=== PATIENT | female | born 1945 | race Caucasian/White ===

== ENCOUNTER 2016-10-11 16:28 | Inpatient (IN) | payer MEDICARE, OTHER ==
[~2016-10-11] VITALS: Ht 152.4 cm; Wt 56.8 kg
[~2016-10-11 16:28] MED LIST: ACETAMINOPHEN500 M1 PO; ADVIL200 MG PO; AMBIEN10 MG PO; AMITRIPTYLINE H50 MG PO; ASPERCREME 5 OZ5 OZ; ATIVAN0.5 MG PO; BACTRIM DS TABL1 TAB PO; BAYER CHEWABLE81 MG PO; BISCOLAX10 MG/SUPP RC; CELEXA10 MG PO; CELEXA20 MG PO; COLACE100 MG PO; CORDARONE200 MG PO; COUMADIN5 MG PO; COZAAR25 MG PO; DULCOLAX10 MG/SUPP RC; FLAGYL500 MG PO; KLONOPIN1 MG PO; LANOXIN125 MCG PO; LANOXIN250 MCG PO; LASIX20 MG PO; LEVAQUIN500 MG PO; LOTRISONE CREAM45 GM TP; MAG-OX 400 MG400 MG PO; MICRO-K10 MEQ PO; MIRALAX17 GM; NEURONTIN600 MG PO; NORCO 10/325 TA1 TA1 PO; NORCO 5/325 TAB1 TA1 PO; ONDANSETRON4 MG/2 M3 IV; PRILOSEC20 MG PO; PROTONIX40 MG PO; PROVENTIL/2.5 MG/3 M INH; QUESTRAN PACK4 G/PKT PO; RESTORIL15 MG PO; ROBAXIN500 MG; ROBAXIN500 MG PO; SENOKOT-S TABLE1 TAB PO; ULTRAM50 MG PO; VANCOMYCIN1 GM/2501 IV; VITAMIN C1000 MG PO; VOLTAREN75 MG OR; VOLTAREN75 MG PO; ZOFRAN4 MG PO; ZOLOFT25 MG PO; [UNRECOGNIZED DRUG - REMARK]
[2016-10-11 17:48] LABS: BASOPHILS 0.4 % (0.0-2.0); EOSINOPHILS 2.9 % (0-7); HEMOGLOBIN 14.1 g/dL (12-16); IMMATURE GRANULOCYTES 0.6 % (0-5); LYMPHOCYTES 14.6 % (15-50); MCH 31.8 pg (26.0-34.0); MCV 99.1 fL (80.0-100.0); MEAN PLATELET VOLUME 9.7 fL (7.4-10.4); MONOCYTES 7.5 % (2-11); PLATELET COUNT 283 10x3/uL (130-400); RBC 4.44 10x6/uL (4.00-5.40); WBC 16.1 10x3/uL (4.8-10.8)
[2016-10-11 18:11] LABS: ANION GAP 11.9 mmol/L (8-16); CALCIUM 9.6 mg/dL (8.5-10.1); CREATININE - SERUM 1.1 mg/dL (0.6-1.3); POTASSIUM - SERUM 4.9 mmol/L (3.5-5.1)
--- NOTE | 2016-10-11 21:50 | NUR ---
RECEIVED PATIENT TO ROOM VIA WHEELCHAIR. NO SIGNS OF DISTRESS NOTED. ORIENTED TO ROOM AND USE OF CALL LIGHT. DENIES ANY NEEDS AT THIS TIME. BED LOW. CALL LIGHT IN REACH
[2016-10-11] MEDS ORDERED: AMITRIPTYLINE H50 MG PO (21:51)
[2016-10-11] MEDS ORDERED: REQUIP0.5 MG PO (21:52)
[2016-10-11] MEDS ORDERED: OMNICEF300 MG PO (21:53)
[2016-10-11] MEDS ORDERED: TESSALON PERLE100 MG PO (21:54)
[2016-10-11 23:24] VITALS: BP 165/81; Ht 152.4 cm; Wt 56.8 kg
[2016-10-12] VITALS: BP 150/56
[2016-10-12 04:00] VITALS: BP 143/69
[2016-10-12 05:49] LABS: BASOPHILS 0.5 % (0.0-2.0); HEMOGLOBIN 12.8 g/dL (12-16); IMMATURE GRANULOCYTES 0.6 % (0-5); LYMPHOCYTES 22.4 % (15-50); MCH 31.4 pg (26.0-34.0); MCV 98.3 fL (80.0-100.0); MEAN PLATELET VOLUME 10.2 fL (7.4-10.4); MONOCYTES 9.9 % (2-11); NEUTROPHILS 63.6 % (40-80); PLATELET COUNT 285 10x3/uL (130-400); RBC 4.07 10x6/uL (4.00-5.40); RDW 13.8 % (11.5-14.5); WBC 12.6 10x3/uL (4.8-10.8)
[2016-10-12 06:20] LABS: ALBUMIN 3.1 g/dL (3.4-5.0); ANION GAP 14.9 mmol/L (8-16); BILIRUBIN - TOTAL 0.36 mg/dL (0.2-1.3); CALCIUM 9.2 mg/dL (8.5-10.1); CARBON DIOXIDE 24.8 mmol/L (21.0-32.0); POTASSIUM - SERUM 4.7 mmol/L (3.5-5.1); PROTEIN - SERUM 5.8 g/dL (6.4-8.2)
--- NOTE | 2016-10-12 07:52 | NUR ---
AWAKE AND ALERT. UP TO BR PER SELF AT THIS TIME. LUNGS ARE CLEAR BILATERALLY, NO COUGH NOTED. SKIN IS INTACT WITHOUT REDNESS. REPORTS 3 SMALL SOFT FORMED STOOLS IN PM. IV TO LEFT FOREARM IS PATENT WITHOUT REDNESS AT INSERTION SITE. DENIES NEEDS. BS ARE PRESENT SLIGHTLY HYPOACTIVE.
[2016-10-12 08:04] VITALS: BP 150/68
--- NOTE | 2016-10-12 09:25 | NUR ---
Patient Name: SAMY HASSAN Admission Status: ER Accout number: [id number] Admission Date: 10-11-2016 : 1945 Admission Diagnosis: Attending: KRISTINA Current LOS: 1 Anticipated DC Date: 10-16-2016 Planned Disposition: Home or Self Care Primary Insurance: MEDICARE A & B Discharge Planning Comments: CM MET WITH PATIENT REGARDING D/C NEEDS AND PLANS. PATIENT STATED SHE LIVES WITH HER SPOUSE (PAM) AND HE WILL PICK HER UP AT DISCHARGE. PATIENT STATED SHE IS INDEPENDENT WITH HER CARE AND HAS A CANE, WALKER, 02 AND PORTABLE AT HOME. PATIENT STATED SHE USES O2 PRN AND USUALLY IS AT 1 TO 1 1/2 LITER. PATIENTS STATED SHE HAS 3 STEPS WITH RAILS TO ENTER HOME AND NO STAIRS INSIDE. PATIENTS PCP IS DR. BROWN AND PHARMACY IS [facility] [address] PATIENT REFUSED HOME HEALTH. CM WILL CONTINUE TO FOLLOW PATIENT WITH D/C NEEDS AND PLANS. PCP DR. STEPHANIE KIRBY [phone] [phone] ASTRID JENKINS (DAUGHTER) [phone] PMA (SPOUSE) COULD NOT REMEMBER HIS NUMBER Mail Technician: Jessica Arana Is the patient Alert and Oriented? Yes 0 * How many steps to enter\exit or inside your home? 3 W/RAILS 0 * PCP DR. BROWN 0 * Pharmacy [facility] [address] 0 * Preadmission Environment Home with Family 0 * ADLs Independent 0 * Equipment Cane Oxygen Walker 0 * List name and contact numbers for known caregivers / representatives who currently or will assist patient after discharge: PAM (SPOUSE) CANT REMEMBER NUMBER ASTRID JENKINS (DAUGHTER) [phone] * Community resources currently utilized None 0 * Additional services required to return to the preadmission environment? Yes 0 * Can the patient safely return to the preadmission environment? Yes 0 * Has this patient been hospitalized within the prior 30 days at any hospital? No 0 Grand Total: 0
--- NOTE | 2016-10-12 10:30 | NUR ---
RESTING QUIETLY IN BED. DENIES NEEDS.
[2016-10-12 11:43] VITALS: BP 154/73
--- NOTE | 2016-10-12 12:18 | NUR ---
REFUSED OFFER OF BATH AT THIS TIME. WILL FOLLOW UP WITH PATIENT.
--- NOTE | 2016-10-12 16:15 | NUR ---
ATE ALL OF LUNCH WITHOUT ANY SIGNS OF DISTRESS. WILL CONTINUE TO MONITOR.
--- NOTE | 2016-10-12 16:49 | NUR ---
CM REASSESSMENT NOTE: PATIENT IS DISCHARGING HOME AND DENIES ANY NEEDS. FAMILY PICKING PATIENT UP.
[2016-10-12 16:56] VITALS: BP 139/70
--- NOTE | 2016-10-12 17:15 | NUR ---
SITTING UP IN BED EATING SUPPER. NO C/O AT THIS TIME. HAD MODERATE AMOUNT OF LOOSE WATERY GREEN STOOL. WILL MONITOR.
--- NOTE | 2016-10-12 18:50 | NUR ---
DISCHARGED HOME WITH FAMILY AMBULATORY.
--- NOTE | 2016-12-11 15:15 | DS ---
PATIENT:SAMY HASSAN :43 MEDICAL RECORD: [id number] DISCHARGE SUMMARY ADMISSION DATE: 10/11/16 DISCHARGE DATE: 10/12/16 ADMISSION DATE: 10/11/2016 DISCHARGE DATE: 10/12/2016 DIAGNOSES: 1. Adynamic ileus. 2. Abdominal pain. 3. Leukocytosis. 4. Hypertension IMAGIN. CT of the abdomen and pelvis which shows no acute intraabdominal pathology. There were some atherosclerotic calcifications in the aorta. 2. A KUB, persistent mild prominence of gas pattern. HOSPITAL COURSE: This is 71-year-old female patient of Dr. Beckwith who was admitted with an adynamic ileus. She underwent a CT and a KUB, see those findings above. She was placed on clear liquids. Her home meds were restarted. She has recently had an NG tube for low intermittent suction. It was discontinued and the patient was able to tolerate a diet. She was thought to be stable and was discharged home to follow back up in the outpatient setting. TRANSINT:[id number] Voice Confirmation ID: [id number] DOCUMENT ID: [id number] Dictated By: CHUYITA HANSEN I have interviewed/examined the above patient and agree with these documented findings. ERIS ROWELL MD at 1515 at 0811 CC: [id number] DICTATION DATE: 12/07/16 0909 PLANT ASSIGNER: 12/08/16 0003 DIS IN 10/12/16 [facility] [address] [place] [address]
== END 2016-10-12 18:50 | disposition home or self-care (01) | DRG 390 ==
LOC: D.ER 16:28 → D.MS 21:11
PROVIDERS: Emergency Medicine; Nurse Practitioner Acute Care; ADMIT Family Medicine
DX: K56.0 Paralytic ileus (principal); I10 Essential (primary) hypertension

== ENCOUNTER → 2018-01-21 15:26 | Outpatient (CLI) | payer MEDICARE, OTHER ==
[2016-10-11 23:24] VITALS: BMI 24.4
[~2018-01-21 15:26] MED LIST changes: +OMNICEF300 MG PO; +REQUIP0.5 MG PO; +TESSALON PERLE100 MG PO
== END | disposition home or self-care (01) ==
LOC: D.MRI 15:26
DX: M25.511 Pain in right shoulder (principal)

== ENCOUNTER → 2019-06-23 08:53 | Outpatient (CLI) | payer MEDICARE, OTHER ==
[2016-10-11 23:24] VITALS: BMI 24.4
[~2019-06-23 08:53] MED LIST changes: +CALCIUM 600 +1 EAC3 PO; +HYDROCODON-ACE1 EA10 PO; +LEVOFLOXACIN500 MG PO; +LYRICA50 MG PO; +MELATONIN5 M3 PO; -NORCO 5/325 TAB1 TA1 PO; +PREDNISONE10 MG PO
[2019-06-23 09:29] LABS: ALBUMIN 3.5 g/dL (3.4-5.0); BILIRUBIN - DIRECT 0.11 mg/dL (0.00-0.30); BILIRUBIN - INDIRECT 0.27 mg/dL (0.00-1.00); BILIRUBIN - TOTAL 0.38 mg/dL (0.2-1.3)
== END | disposition home or self-care (01) ==
LOC: D.LAB 08:53 → D.US 10:30
PROVIDERS: ATTEND Internal Medicine Gastroenterology
DX: K76.0 Fatty (change of) liver, not elsewhere classified (principal)

== ENCOUNTER → 2019-07-21 14:11 | Outpatient (CLI) | payer MEDICARE, OTHER ==
[2016-10-11 23:24] VITALS: BMI 24.4
== END | disposition home or self-care (01) ==
LOC: D.HCCARDIO 14:00 → D.HCCECHO 14:00
PROVIDERS: ATTEND Internal Medicine Cardiovascular Disease
DX: I35.0 Nonrheumatic aortic (valve) stenosis (principal)

== ENCOUNTER 2019-07-29 17:14 | Inpatient (IN) | payer MEDICARE, OTHER ==
[~2019-07-29] VITALS: Ht 152.4 cm; Wt 55.9 kg
[~2019-07-29 17:14] MED LIST changes: -CALCIUM 600 +1 EAC3 PO; -LEVOFLOXACIN500 MG PO; -LYRICA50 MG PO; -MELATONIN5 M3 PO; -PREDNISONE10 MG PO
[2019-07-29 19:40] LABS: BASOPHILS 0.4 % (0-2); EOSINOPHILS 1.6 % (0-7); HEMATOCRIT 42.8 % (36.0-48.0); HEMOGLOBIN 13.6 g/dL (12-16); IMMATURE GRANULOCYTES 0.3 % (0-5); LYMPHOCYTES 31.5 % (15-50); MCH 31.9 pg (26.0-34.0); MCHC 31.8 g/dL (31.0-37.0); MCV 100.2 fL (80.0-100.0); MEAN PLATELET VOLUME 9.8 fL (7.4-10.4); NEUTROPHILS 57.2 % (40-80); PLATELET COUNT 233 10x3/uL (130-400); RBC 4.27 10x6/uL (4.00-5.40); RDW 14.7 % (11.5-14.5); WBC 10.3 10x3/uL (4.8-10.8)
[2019-07-29 19:49] LABS: CALC OSMOLALITY 286 mosm/kg (275-300); CARBON DIOXIDE 25.6 mmol/L (21.0-32.0); CHLORIDE - SERUM 110 mmol/L (98-107); CREATININE - SERUM 0.8 mg/dL (0.6-1.3); GLUCOSE 85 mg/dL (74-106); POTASSIUM - SERUM 4.4 mmol/L (3.5-5.1); SODIUM 145 mmol/L (136-145); UREA NITROGEN 10 mg/dL (7-18); eGFR NON AFRICAN AMERICAN 74 mL/min (90-120)
[2019-07-29 20:06] LABS: ALBUMIN 3.5 g/dL (3.4-5.0); ALKALINE PHOSPHATASE 95 U/L (46-116); ALT (SGPT) 46 U/L (10-68); BILIRUBIN - TOTAL 0.38 mg/dL (0.2-1.3); CKMB 4.6 U/L (0.0-3.6); CREATINE KINASE 123 UL (21-215); PRO BNP 1811 pg/mL (0-450); PROTEIN - SERUM 6.6 g/dL (6.4-8.2); TROPONIN-I 0.025 ng/mL (0.000-0.060)
--- NOTE | 2019-07-29 20:44 | NUR ---
URINE SENT TO LAB
[2019-07-29 21:04] LABS: APPEARANCE CLEAR (CLEAR); BILIRUBIN NEGATIVE (NEGATIVE); COLOR YELLOW (YELLOW); GLUCOSE NEGATIVE (NEGATIVE); KETONE NEGATIVE (NEGATIVE); NITRITE POSITIVE (NEGATIVE); PROTEIN NEGATIVE (NEGATIVE); UROBILINOGEN NORMAL (NORMAL)
[2019-07-29 21:05] LABS: BACTERIA MANY /hpf (NEGATIVE); EPITHELIAL CELLS 0-5 /hpf (0-5); RED CELLS - URINE OCC /hpf (0-5)
[2019-07-29] MEDS ORDERED: CELEXA20 MG PO (22:07)
[2019-07-29] MEDS ORDERED: LYRICA50 MG PO (22:08)
[2019-07-29] MEDS ORDERED: CALCIUM 600 +1 EAC3 PO (22:10)
[2019-07-29] MEDS ORDERED: MELATONIN5 M3 PO (22:11)
[2019-07-29 22:14] VITALS: BP 115/70; Ht 152.4 cm; Wt 55.9 kg
--- NOTE | 2019-07-29 22:56 | NUR ---
PATIENT ARRIVED TO ROOM 2107 VIA W/C @2200. PATIENT IS AAOX4, IV TO RT AC [place] INFUSING. MED REC, QUICK START, ADULT HX, SUICIDE SCREENING COMPLETED.
[2019-07-30] VITALS: BP 152/76
--- NOTE | 2019-07-30 00:57 | NUR ---
PATIENT MEDICATED FOR SHOULDER AND LEG PAIN AT THIS TIME.
--- NOTE | 2019-07-30 02:50 | NUR ---
I have reviewed this patient and I concur with the Shift Assessment completed by the Licensed Practical Nurse today this shift.
[2019-07-30 04:00] VITALS: BP 142/62
[2019-07-30 05:03] LABS: BASOPHILS 0.3 % (0-2); EOSINOPHILS 1.7 % (0-7); HEMATOCRIT 40.2 % (36.0-48.0); HEMOGLOBIN 12.7 g/dL (12-16); IMMATURE GRANULOCYTES 0.3 % (0-5); LYMPHOCYTES 27.5 % (15-50); MCH 31.6 pg (26.0-34.0); MCHC 31.6 g/dL (31.0-37.0); MEAN PLATELET VOLUME 10.2 fL (7.4-10.4); MONOCYTES 10.6 % (2-11); NEUTROPHILS 59.6 % (40-80); PLATELET COUNT 234 10x3/uL (130-400); RBC 4.02 10x6/uL (4.00-5.40); RDW 14.5 % (11.5-14.5); WBC 9.4 10x3/uL (4.8-10.8)
[2019-07-30 05:48] LABS: ALBUMIN 2.9 g/dL (3.4-5.0); ANION GAP 12.8 mmol/L (8-16); BILIRUBIN - TOTAL 0.42 mg/dL (0.2-1.3); CALCIUM 8.5 mg/dL (8.5-10.1); CARBON DIOXIDE 23.7 mmol/L (21.0-32.0); CREATININE - SERUM 0.8 mg/dL (0.6-1.3); MAGNESIUM - SERUM 1.9 mg/dL (1.8-2.4); PHOSPHOROUS 3.3 mg/dL (2.5-4.9); THYROID STIMULATING HORMONE 1.54 uIU/mL (0.36-3.74)
[2019-07-30 05:53] LABS: POTASSIUM - SERUM 3.5 mmol/L (3.5-5.1)
[2019-07-30 06:07] LABS: INR 1.08 (0.85-1.17); PROTIME 13.5 SECONDS (11.6-15.0)
[2019-07-30] MEDS ORDERED: PREDNISONE10 MG PO (08:46)
--- NOTE | 2019-07-30 08:49 | NUR ---
PT CONCERNED ABOUT HOME MEDS AND SPECIDICALLY STARTING PREDNISONE DR. TERRELL WANTED HER TO START THIS AM. I STATED TO PT I WILL CALL AND SPEAK WITH NURSE PRACTIONER. PT VERBALIZED UNDERSTANDING. CALLED AND SPOKE WITH MIRI JEWELL ABOUT PT'S CONCERNS AND SHE STATES SHE WILL LOOK THROUGH PT'S MEDS AND START WHATEVER IS APPROPRIATE. I VERBALIZED UNDERSTANDING.
[2019-07-30 09:12] VITALS: BP 117/42
[2019-07-30 09:19] VITALS: BP 161/61
[2019-07-30 09:20] VITALS: BP 164/60
--- NOTE | 2019-07-30 11:32 | NUR ---
Rehab Note- Acute Inpatient Rehab prescreen order received. The patient continues to have an acute work up at this time. Will follow at this time for possible acute inpatient rehab stay when medically stable and ready for discharge from the acute hospital. Thank you for this referral! Martha Lindsey RN Clinical Liaison, [facility]
[2019-07-30 12:08] VITALS: BP 137/38
--- NOTE | 2019-07-30 15:52 | NUR ---
REPORTED TO ME PT IS FEELING COLD AND NOT HOLDING A CONVERSATION. WENT AND ASSESSED PT AND SHE IS ALERT AND ORIENTED AND CAN HOLD A CONVERSATION ASKED PT HOW SHE IS FEELING AND SHE STATES "OK IM STARTING TO FEEL A LITTLE BETTER BUT I AM A LITTLE COLD." PT'S AIR IS ON 50 TURNED IT UO TO 85. WILL CONTINUE TO MONITOR.
--- NOTE | 2019-07-30 16:18 | NUR ---
PT REFUSED SCD'S.
--- NOTE | 2019-07-30 16:48 | NUR ---
WORK ORDER PLACED EARLIER FOR PT'S TV NOT WORKING. CALLED MAINTENANCE AND THEY STATE THEY WILL COME TAKE A LOOK AT IT.
--- NOTE | 2019-07-30 17:35 | NUR ---
CONCUR WITH TOLL MECHANIC ASSESSMENT OF THIS PATIENT.
--- NOTE | 2019-07-30 19:23 | NUR ---
REPORT RECEIVED, WILL CONTINUE POC. PATIENT IS AAOX4, SITTING UP IN BED. DR. BRADFORD AT BEDSIDE.
--- NOTE | 2019-07-30 22:54 | NUR ---
PT MEDICATED FOR SHOULDER PAIN AT THIS TIME.
--- NOTE | 2019-07-31 02:02 | NUR ---
I have reviewed this patient and I concur with the Shift Assessment completed by the Licensed Practical Nurse today this shift.
[2019-07-31 04:56] VITALS: BP 168/53
[2019-07-31 06:21] LABS: BASOPHILS 0.2 % (0-2); EOSINOPHILS 0.6 % (0-7); HEMATOCRIT 37.9 % (36.0-48.0); IMMATURE GRANULOCYTES 0.3 % (0-5); LYMPHOCYTES 25.4 % (15-50); MCH 31.3 pg (26.0-34.0); MCHC 31.7 g/dL (31.0-37.0); MEAN PLATELET VOLUME 10.5 fL (7.4-10.4); MONOCYTES 9.6 % (2-11); NEUTROPHILS 63.9 % (40-80); PLATELET COUNT 224 10x3/uL (130-400); RBC 3.83 10x6/uL (4.00-5.40); RDW 14.5 % (11.5-14.5); WBC 10.2 10x3/uL (4.8-10.8)
[2019-07-31 06:36] LABS: ANION GAP 10.9 mmol/L (8-16); CALCIUM 8.7 mg/dL (8.5-10.1); CARBON DIOXIDE 27.2 mmol/L (21.0-32.0); MAGNESIUM - SERUM 2.3 mg/dL (1.8-2.4); PHOSPHOROUS 3.5 mg/dL (2.5-4.9)
[2019-07-31 06:37] LABS: CREATININE - SERUM 1.1 mg/dL (0.6-1.3); POTASSIUM - SERUM 4.1 mmol/L (3.5-5.1)
--- NOTE | 2019-07-31 07:29 | NUR ---
REPORT RECEIVED. WILL CONTINUE WITH POC. PT CURRENTLY LYING SEMI FOWLERS. CALL LIGHT W/I REACH. PT IS AAO AND UP WITH ASSIST. RR EVEN AND UNLABORED ON RA. R.AC PIV IS SALINE LOCKED. R.AC PIV IS SALINE LOCKED. NO S/S OF DISTRESS NOTED. PT DENIES ANY NEEDS. WILL CTM.
--- NOTE | 2019-07-31 11:17 | NUR ---
PT UP AND WALKING WITH PT. PT ASSISTED BACK INTO BED. AAO AND UP WITH ASSIST. CALL LIGHT W/I REACH. ASSESSMENT COMPLETE. WILL CTM.
[2019-07-31 12:20] VITALS: BP 126/31
[2019-07-31 12:27] VITALS: BP 119/42
[2019-07-31 15:58] VITALS: BP 152/45
--- NOTE | 2019-07-31 16:14 | NUR ---
I have reviewed this patient and I concur with the Shift Assessment completed by the Licensed Practical Nurse today this shift.
--- NOTE | 2019-07-31 16:47 | MORECARE ---
CASE MANAGEMENT DISCHARGE SUMMARY PATIENT: SAMY HASSAN UNIT: [id number] ADM DATE: 07/29/19 AGE: 74 : 44 SEX: F ROOM/BED: D.2103 AUTHOR: ABDI RAMOS PHYSICIAN: REFERRING PHYSICIAN: RADHA BRADFORD MD DATE OF SERVICE: 07/31/19 Discharge Plan Patient Name: SAMY HASSAN Facility: [facility]:[place] : 1945 Planned Disposition: Inpatient Rehab Anticipated Discharge Date: 08/01/19 Discharge Date: Expected LOS: 3 Initial Reviewer: [email or web address] Initial Review Date: 07/31/2019 Generated: 07/31/19 5:47 pm DCPIA - Discharge Planning Initial Assessment Updated by [email or web address]: Nestor Starks on 07/31/19 4:44 pm * Is the patient Alert and Oriented? Yes * How many steps to enter\exit or inside your home? 3 W/RAILS * PCP DR. BROWN * Pharmacy [facility] [address] * Preadmission Environment Home with Family * ADLs Independent * Equipment Cane Oxygen Rolling Walker * Other Equipment HOME OXYGEN ROLLATOR WALKER - [employer] IS PROVIDER * List name and contact numbers for known caregivers / representatives who currently or will assist patient after discharge: ASTRID JENKINS DTR, * Verbal permission to speak to the caregivers and representatives has been obtained from the patient. N/A * Community resources currently utilized None * Please name any agencies selected above. NONE * Additional services required to return to the preadmission environment? Yes * Can the patient safely return to the preadmission environment? Yes * Has this patient been hospitalized within the prior 30 days at any hospital? No Coverage Notice Reviewer: [email or web address] - Nestor Starks Notice Issued Date-Time: 07/31/2019 9:55 Notice Type: IM Discharge Notice Notice Delivered To: Patient Relationship to Patient: Manager Outreach Name: Delivery Method: HAND - Hand Delivered Lindsay Days: Prior Verbal Notification: Recipient Understood Notice: Yes Recipient Signature: Yes Med Rec Note Co-signed by Attending: Coverage Notice Comment: Patient Name: SAMY HASSAN Page [phone] at 1647 All edits/amendments must be made on the electronic document DICTATION DATE: 07/31/191646 TOOL KEEPER: JOHANA 07/31/191646 RPT#: [id number] OR DATE: STATUS: ADM IN [facility] [address] [place] [address] END OF REPORT
--- NOTE | 2019-07-31 16:54 | MORECARE ---
CASE MANAGEMENT DISCHARGE SUMMARY PATIENT: SAMY HASSAN UNIT: [id number] ADM DATE: 07/29/19 AGE: 74 : 44 SEX: F ROOM/BED: D.2108 AUTHOR: RICHARD,DOC PHYSICIAN: REFERRING PHYSICIAN: RADHA BRADFORD MD DATE OF SERVICE: 07/31/19 Discharge Plan Patient Name: SAMY HASSAN [facility] [facility] 1945 Planned Disposition: Inpatient Rehab Anticipated Discharge Date: 08/01/19 Discharge Date: Expected LOS: 3 Initial Reviewer: [email or web address] Initial Review Date: 07/31/2019 Generated: 07/31/19 5:53 pm Comments DCP- Discharge Planning Updated by [email or web address]: Nestor Starks on 07/31/19 3:[address] Patient Name: SAMY HASSAN Admission Status: ER Accout number: [id number] Admission Date: 07-29-2019 : 1945 Admission Diagnosis: Attending: RADHA BRADFORD Current LOS: 2 Anticipated DC Date: 08-01-2019 Planned Disposition: Inpatient Rehab Primary Insurance: MEDICARE A & B PREFERRED EXERNAL PROVIDER: [facility] INPATIENT REHAB Discharge Planning Comments: CM RECEIVED ORDER FOR INPATIENT REHAB PRESCREENING. CM MET WITH PT IN ROOM TO DISCUSS DISCHARGE PLANNING AND NEEDS. PT REPORTS LIVING AT HOME INDEPENDENTLY; ALSO IN THE HOME IS PT'S DAUGHTER. PT HAS ROLLATOR WALKER, HOME OXYGEN CONCENTRATOR AND CANE FROM [facility]. PT HAS NO OUTSIDE SERVICES ASSISTING IN THE HOME. CM DISCUSSED AVAILABILITY OF HOME HEALTH, REHAB SERVICES AND MEDICAL EQUIPMENT. CM DISCUSSED REHAB LOCATIONS, PROVIDERS AND AVAILABILITY. PT REPORTS NEEDING REHAB SHE HAS BEEN SHORT OF BREATH AND LOOSING BALANCE WHEN WALKING. PT WOULD LIKE REHAB AT [place]. PT REPORTS HER DAUGHTER WILL PICK HER UP FOR DISCHARGE HOME. IMPORTANT MESSAGE FROM MEDICARE PROVIDED AND EXPLAINED. CM SPOKE TO GLEND[facility] OF INPATIENT REHAB, THEY PLAN TO ACCEPT PT WHEN MEDICALLY STABLE FOR DISCHARGE, FOR REHAB. PT NOTIFIED, IN AGREEMENT WITH DISCHARGE TO INPATIENT REHAB. NOTIFY REHAB WHEN DISCHARGE ORDER IS RECEIVED. [facility] INPATIENT REHAB TO CONTACT MED 2 NURSE WITH ROOM NUMBER WHEN READY TO ACCEPT PT AND NURSE REPORT. Bandoleer Straightener Stamper: Nestor Starks DCPIA - Discharge Planning Initial Assessment Updated by [email or web address]: Nestor Starks on 07/31/19 4:44 pm * Is the patient Alert and Oriented? Yes * How many steps to enter\exit or inside your home? 3 W/RAILS * PCP DR. BROWN * Pharmacy [facility] [address] * Preadmission Environment Home with Family * ADLs Independent * Equipment Cane Oxygen Rolling Walker * Other Equipment HOME OXYGEN ROLLATOR WALKER - [employer] IS PROVIDER * List name and contact numbers for known caregivers / representatives who currently or will assist patient after discharge: ASTRID JENKINS, DTR, * Verbal permission to speak to the caregivers and representatives has been obtained from the patient. N/A * Community resources currently utilized None * Please name any agencies selected above. NONE * Additional services required to return to the preadmission environment? Yes * Can the patient safely return to the preadmission environment? Yes * Has this patient been hospitalized within the prior 30 days at any hospital? No Coverage Notice Reviewer: [id number] - Nestor Starks Notice Issued Date-Time: 07/31/2019 9:55 Notice Type: IM Discharge Notice Notice Delivered To: Patient Relationship to Patient: Composition Roll Maker And Cutter Name: Delivery Method: HAND - Hand Delivered Lindsay Days: Prior Verbal Notification: Recipient Understood Notice: Yes Recipient Signature: Yes Med Rec Note Co-signed by Attending: Coverage Notice Comment: Last DP export: 07/31/19 3:47 Patient Name: SAMY HASSAN Page [phone] at 1654 All edits/amendments must be made on the electronic document DICTATION DATE: 07/31/191652 ER REGISTRAR: JOHANA 07/31/191652 RPT#: [id number] [place] DATE: STATUS: ADM IN [facility] [address] [place] [address] END OF REPORT
--- NOTE | 2019-07-31 17:08 | NUR ---
ORTHOSTATIC BLOOD PRESSURES FOLLOWED: LYIN/68. SITTIN/59. STANDIN/61.
--- NOTE | 2019-07-31 18:07 | NUR ---
PT ASSISTED TO AND FROM BATHROOM. WHERE PT VOIDED APPROX 150ML OF PALE YELLOW URINE. PT DENIES ANY NEEDS AT THIS TIME. NO S/S OF DISTRESS NOTED. PT UP WITH MINIMAL ASSIST. WILL CTM.
--- NOTE | 2019-07-31 19:47 | NUR ---
REPORT RECEIVED, WILL CONTINUE POC. PATIENT IS AAOX4, SITTING UP IN BED. NO S/S OF DISTRESS OBSERVED, RR EVEN AND UNLABORED ON ROOM AIR. PATIENT DENIES NEEDS AT THIS TIME. CL IN REACH, BED LOCKED AND LOWERED. WILL CTM.
[2019-07-31 20:39] VITALS: BP 160/44
[2019-08-01 00:15] VITALS: BP 174/44
--- NOTE | 2019-08-01 03:08 | NUR ---
I have reviewed this patient and I concur with the Shift Assessment completed by the Licensed Practical Nurse today this shift.
[2019-08-01 04:45] VITALS: BP 152/45
[2019-08-01 05:45] LABS: BASOPHILS 0.2 % (0-2); EOSINOPHILS 1.6 % (0-7); HEMATOCRIT 37.3 % (36.0-48.0); HEMOGLOBIN 11.8 g/dL (12-16); IMMATURE GRANULOCYTES 0.4 % (0-5); LYMPHOCYTES 26.3 % (15-50); MCH 31.6 pg (26.0-34.0); MCHC 31.6 g/dL (31.0-37.0); MEAN PLATELET VOLUME 10.6 fL (7.4-10.4); MONOCYTES 10.4 % (2-11); NEUTROPHILS 61.1 % (40-80); PLATELET COUNT 238 10x3/uL (130-400); RBC 3.73 10x6/uL (4.00-5.40); RDW 14.8 % (11.5-14.5); WBC 11.1 10x3/uL (4.8-10.8)
[2019-08-01 06:16] LABS: ANION GAP 11.5 mmol/L (8-16); CALCIUM 8.2 mg/dL (8.5-10.1); CARBON DIOXIDE 26.1 mmol/L (21.0-32.0); CREATININE - SERUM 1.2 mg/dL (0.6-1.3); MAGNESIUM - SERUM 2.2 mg/dL (1.8-2.4); PHOSPHOROUS 3.1 mg/dL (2.5-4.9); POTASSIUM - SERUM 3.6 mmol/L (3.5-5.1)
[2019-08-01 07:50] VITALS: BP 180/57
--- NOTE | 2019-08-01 07:56 | NUR ---
REPORT RECEIVED. WILL CONTINUE WITH POC. PT CURRENTLY LYING SEMI FOWLERS. CALL LIGHT W/I REACH. PT IS AAO AND UP WITH ASSIST. RR EVEN AND UNALBORED ON RA. L.FOR PIV IS SALINE LOCKED. NO S/S OF DISTRESS NOTED. PT DENIES ANY NEEDS AT THIS TIME. WILL CTM.
[2019-08-01 10:47] VITALS: BP 131/53
[2019-08-01] MEDS ORDERED: LEVOFLOXACIN500 MG PO (11:09)
--- NOTE | 2019-08-01 11:44 | NUR ---
I have reviewed this patient and I concur with the Shift Assessment completed by the Licensed Practical Nurse today this shift.
--- NOTE | 2019-08-01 13:31 | NUR ---
PT TRANSFERED TO INPATIENT REHAB VIA WHEELCHAIR. PIV REMOVED WITH CATHETER TIP FULLY INTACT. TELEMETRY REMOVED AND RETURNED. PT SIGNED PROPER DISCHARGE INSTRUCTIONS AND REMOVED ALL VALUABLES FROM THE ROOM.
--- NOTE | 2019-08-01 16:15 | MORECARE ---
CASE MANAGEMENT DISCHARGE SUMMARY PATIENT: SAMY HASSAN UNIT: [id number] ADM DATE: 07/29/19 AGE: 74 : 44 SEX: F ROOM/BED: D.2107 AUTHOR: RICHARD,DOC PHYSICIAN: REFERRING PHYSICIAN: RADHA BRADFORD MD DATE OF SERVICE: 08/01/19 Discharge Plan Patient Name: SAMY HASSAN Facility: [facility]:[place] : 1945 Planned Disposition: Inpatient Rehab Anticipated Discharge Date: 08/01/19 Discharge Date: 08/01/2019 Expected LOS: 3 Initial Reviewer: [email or web address] Initial Review Date: 07/31/2019 Generated: 08/01/19 5:15 pm Comments DCP- Discharge Planning Updated by [email or web address]: Nestor Starks on 07/31/19 3:[address] Patient Name: SAMY HASSAN Admission Status: ER Accout number: [id number] Admission Date: 07-29-2019 : 1945 Admission Diagnosis: Attending: RADHA BRADFORD Current LOS: 2 Anticipated DC Date: 08-01-2019 Planned Disposition: Inpatient Rehab Primary Insurance: MEDICARE A & B PREFERRED EXERNAL PROVIDER: [facility] INPATIENT REHAB Discharge Planning Comments: CM RECEIVED ORDER FOR INPATIENT REHAB PRESCREENING. CM MET WITH PT IN ROOM TO DISCUSS DISCHARGE PLANNING AND NEEDS. PT REPORTS LIVING AT HOME INDEPENDENTLY; ALSO IN THE HOME IS PT'S DAUGHTER. PT HAS ROLLATOR WALKER, HOME OXYGEN CONCENTRATOR AND CANE FROM [facility]. PT HAS NO OUTSIDE SERVICES ASSISTING IN THE HOME. CM DISCUSSED AVAILABILITY OF HOME HEALTH, REHAB SERVICES AND MEDICAL EQUIPMENT. CM DISCUSSED REHAB LOCATIONS, PROVIDERS AND AVAILABILITY. PT REPORTS NEEDING REHAB SHE HAS BEEN SHORT OF BREATH AND LOOSING BALANCE WHEN WALKING. PT WOULD LIKE REHAB AT [place]. PT REPORTS HER DAUGHTER WILL PICK HER UP FOR DISCHARGE HOME. IMPORTANT MESSAGE FROM MEDICARE PROVIDED AND EXPLAINED. CM SPOKE TO GLENDY OF INPATIENT REHAB, THEY PLAN TO ACCEPT PT WHEN MEDICALLY STABLE FOR DISCHARGE, FOR REHAB. PT NOTIFIED, IN AGREEMENT WITH DISCHARGE TO INPATIENT REHAB. NOTIFY REHAB WHEN DISCHARGE ORDER IS RECEIVED. [facility] INPATIENT REHAB TO CONTACT MED 2 NURSE WITH ROOM NUMBER WHEN READY TO ACCEPT PT AND NURSE REPORT. Gelatin Plant Supervisor: Nestor Starks DCPIA - Discharge Planning Initial Assessment Updated by [email or web address]: Nestor Starks on 07/31/19 4:44 pm * Is the patient Alert and Oriented? Yes * How many steps to enter\exit or inside your home? 3 W/RAILS * PCP DR. BROWN * Pharmacy [facility] [address] * Preadmission Environment Home with Family * ADLs Independent * Equipment Cane Oxygen Rolling Walker * Other Equipment HOME OXYGEN ROLLATOR WALKER - [employer] IS PROVIDER * List name and contact numbers for known caregivers / representatives who currently or will assist patient after discharge: ASTRID JENKINS, DTR, * Verbal permission to speak to the caregivers and representatives has been obtained from the patient. N/A * Community resources currently utilized None * Please name any agencies selected above. NONE * Additional services required to return to the preadmission environment? Yes * Can the patient safely return to the preadmission environment? Yes * Has this patient been hospitalized within the prior 30 days at any hospital? No Coverage Notice Reviewer: [id number] - Nestor Starks Notice Issued Date-Time: 07/31/2019 9:55 Notice Type: IM Discharge Notice Notice Delivered To: Patient Relationship to Patient: Legal Recruiter Name: Delivery Method: HAND - Hand Delivered Lindsay Days: Prior Verbal Notification: Recipient Understood Notice: Yes Recipient Signature: Yes Med Rec Note Co-signed by Attending: Coverage Notice Comment: Last DP export: 07/31/19 3:54 Patient Name: SAMY HASSAN Page [phone] at 1615 All edits/amendments must be made on the electronic document DICTATION DATE: 08/01/19 161 PLY CUTTER: JOHANA 08/01/19 161 RPT#: [id number] DC DATE:08/01/19 STATUS: DIS IN [facility] [address] [place] [address] END OF REPORT
== END 2019-08-01 13:31 | DRG 689 ==
LOC: D.ER 17:14 → D.M2 21:23
PROVIDERS: Family Medicine; ADMIT Internal Medicine Nephrology; ATTEND Internal Medicine Nephrology
DX: N39.0 Urinary tract infection, site not specified (principal); I50.33 Acute on chronic diastolic (congestive) heart failure; E44.0 Moderate protein-calorie malnutrition; Z91.81 History of falling; D75.89 Other specified diseases of blood and blood-forming organs; I11.0 Hypertensive heart disease with heart failure; I35.2 Nonrheumatic aortic (valve) stenosis with insufficiency; M19.90 Unspecified osteoarthritis, unspecified site; M81.0 Age-related osteoporosis without current pathological fracture; G25.81 Restless legs syndrome; F32.9 Major depressive disorder, single episode, unspecified; Z68.24 Body mass index [BMI] 24.0-24.9, adult; K52.9 Noninfective gastroenteritis and colitis, unspecified

== ENCOUNTER 2019-08-01 13:06 | Inpatient (IN) | payer MEDICARE, OTHER ==
[~2019-08-01] VITALS: Ht 152.4 cm; Wt 56.7 kg
[~2019-08-01 13:06] MED LIST changes: +CALCIUM 600 +1 EAC3 PO; +LEVOFLOXACIN500 MG PO; +LYRICA50 MG PO; +MELATONIN5 M3 PO; +PREDNISONE10 MG PO
[2019-08-01 14:21] VITALS: BP 127/31; BMI 24.4
--- NOTE | 2019-08-01 14:30 | NUR ---
PATIENT ADMITTED FROM MED SURG TO ROOM 1109. ALERT/ORIENT. DIAG: DEBILITY. PATIENT ORIENT TO ROOM AND UNIT
--- NOTE | 2019-08-01 15:57 | NUR ---
PATIENT ADMITTED TO REHAB FROM ACUTE FLOOR. HER PCP IS DR. BROWN. DME AT HOME IS WALKER, CAN AND O2 PROVIDED FROM [facility]. DISCHARGE PLANS ARE FOR HER TO RETURN HOME WITH FAMILY . WILL CONTINUE TO FOLLOW WITH PATIENT.
--- NOTE | 2019-08-01 17:55 | NUR ---
PT EATING DINNER, SITTING UP IN CHAIR. PT DENIES NEEDS. PRN O2 SET UP IN ROOM ON PT REQUEST.
[2019-08-01 19:21] VITALS: BP 165/54
--- NOTE | 2019-08-01 19:52 | NUR ---
AWAKE AND ALERT. SITTING IN WHEELCHAIR IN ROOM. RESPIRATIONS MILDY LABORED AND MILD SHORTNESS OF BREATH NOTED. PATIENT STATES SHE WILL PUT ON HER O2 WHEN SHE GOES TO BED. O2 SATURATION 92%. NO ACUTE DISTRESS NOTED.
--- NOTE | 2019-08-02 01:39 | NUR ---
SLEEPING WITH RESPIRATIONS UNLABORED. NO DISTRESS NOTED. CALL LIGHT IN REACH.
--- NOTE | 2019-08-02 05:11 | NUR ---
SITTING UP IN WHEELCHAIR. QUIET HOURS. MEDICATED FOR C/O BACK PAIN. SEE MAR. RESPIRATIONS UNLABORED. NO DISTRESS NOTED.
[2019-08-02 06:04] LABS: BASOPHILS 0.5 % (0-2); EOSINOPHILS 1.7 % (0-7); HEMATOCRIT 40.8 % (36.0-48.0); HEMOGLOBIN 13.1 g/dL (12-16); IMMATURE GRANULOCYTES 0.3 % (0-5); LYMPHOCYTES 30.3 % (15-50); MCH 31.9 pg (26.0-34.0); MCHC 32.1 g/dL (31.0-37.0); MCV 99.3 fL (80.0-100.0); MEAN PLATELET VOLUME 10.3 fL (7.4-10.4); MONOCYTES 11.4 % (2-11); NEUTROPHILS 55.8 % (40-80); PLATELET COUNT 250 10x3/uL (130-400); RBC 4.11 10x6/uL (4.00-5.40); RDW 14.8 % (11.5-14.5)
[2019-08-02 06:19] LABS: ANION GAP 11.8 mmol/L (8-16); CALCIUM 8.8 mg/dL (8.5-10.1); CARBON DIOXIDE 25.8 mmol/L (21.0-32.0); CREATININE - SERUM 0.9 mg/dL (0.6-1.3); POTASSIUM - SERUM 3.6 mmol/L (3.5-5.1)
[2019-08-02 08:00] VITALS: BP 147/40
--- NOTE | 2019-08-02 08:00 | NUR ---
SHIFT ASSMT COMPLETED.BREAKFAST GIVEN.
--- NOTE | 2019-08-02 12:00 | NUR ---
SITTING UP EATING LUNCH.DENIES NEEDS.
[2019-08-02 12:32] VITALS: Ht 152.4 cm; Wt 56.7 kg
--- NOTE | 2019-08-02 16:00 | NUR ---
RESTING QUIETLY.CL IN REACH.
[2019-08-02 19:25] VITALS: BP 155/50
--- NOTE | 2019-08-02 19:29 | NUR ---
AWAKE AND ALERT. RESTING IN BED READING. RESPIRATIONS UNLABORED AT REST. SOME SHORTNESS OF BREATH WITH EXERTION. WEARS O2/2L AT NIGHT. 3+ EDEMA NOTED TO BILATERAL LOWER EXTREMITIES. LEGS ELEVATED IN BED. NO ACUTE DISTRESS NOTED. CALL LIGHT IN REACH.
--- NOTE | 2019-08-02 23:37 | NUR ---
SLEEPING WITH RESPIRATIONS UNLABORED. NO DISTRESS NOTED.
--- NOTE | 2019-08-03 03:03 | NUR ---
CONTINUES RESTING IN BED WITH RESPIRATIONS UNLABORED. NO DISTRESS NOTED. CALL LIGHT IN REACH.
--- NOTE | 2019-08-03 06:28 | NUR ---
QUIET HOURS. NO ACUTE CHANGES IN CONDITION THIS SHIFT. UP TO BATHROOM AND BACK TO BED WITH NO DISTRESS NOTED.
[2019-08-03 08:00] VITALS: BP 131/35
--- NOTE | 2019-08-03 12:00 | NUR ---
UP IN BED EATING LUNCH.
--- NOTE | 2019-08-03 14:57 | NUR ---
SHIFT ASSMT COMPLETED.BREAKFAST GIVEN.
[2019-08-03 19:34] VITALS: BP 144/58
--- NOTE | 2019-08-03 19:37 | NUR ---
AWAKE AND ALERT. SITTING ON SIDE OF BED WATCHING TV. RESPIRATIONS UNLABORED. STATES SHE HAS HAD SEVERAL DIARRHEA STOOLS TODAY. I LET HER KNOW THAT A MESSAGE WAS LEFT FOR DR ANNA ON ROUNDING SHEET. SHE VOICED OK. CONTINUES TO HAVE 3+ EDEMA IN BILATERAL LOWER EXTREMITIES. WEARS O2/1.5L PER NASAL CANNULA AT HS. NO ACUTE DISTRESS NOTED. CALL LIGHT IN REACH.
--- NOTE | 2019-08-03 23:11 | NUR ---
SLEEPING WITH RESPIRATIONS UNLABORED. NO DISTRESS NOTED. CALL LIGHT IN REACH.
--- NOTE | 2019-08-04 03:26 | NUR ---
UP TO BATHROOM AND BACK TO BED. STATED SHE HAD ANOTHER LOOSE STOOL BUT "IT'S LESS THAN BEFORE". MEDICATED FOR SHOULDER PAIN. SEE MAR.
--- NOTE | 2019-08-04 05:03 | NUR ---
RESTING IN BED. HAS HAD 3 LOOSE STOOLS THIS SHIFT. NO ACUTE DISTRESS NOTED. CALL LIGHT IN REACH.
[2019-08-04 06:26] LABS: BASOPHILS 0.2 % (0-2); EOSINOPHILS 1.7 % (0-7); HEMATOCRIT 39.9 % (36.0-48.0); HEMOGLOBIN 12.4 g/dL (12-16); IMMATURE GRANULOCYTES 0.7 % (0-5); LYMPHOCYTES 25.1 % (15-50); MCH 31.2 pg (26.0-34.0); MCHC 31.1 g/dL (31.0-37.0); MCV 100.3 fL (80.0-100.0); MEAN PLATELET VOLUME 10.5 fL (7.4-10.4); MONOCYTES 10.2 % (2-11); NEUTROPHILS 62.1 % (40-80); PLATELET COUNT 268 10x3/uL (130-400); RBC 3.98 10x6/uL (4.00-5.40)
[2019-08-04 06:41] LABS: ANION GAP 10.2 mmol/L (8-16); CALCIUM 8.5 mg/dL (8.5-10.1); CARBON DIOXIDE 29.9 mmol/L (21.0-32.0); POTASSIUM - SERUM 4.1 mmol/L (3.5-5.1)
--- NOTE | 2019-08-04 07:48 | NUR ---
ALERT AND ORIENTED. EATING BREAKFAST IN THERAPY. NO C/O PAIN. RESP EVEN AND UNLABORED.
[2019-08-04 07:55] VITALS: BP 168/44
--- NOTE | 2019-08-04 09:24 | RHP ---
PATIENT: SAMY HASSAN MEDICAL RECORD: [id number] ACCOUNT: [id number] LOCATION:[id number] : 43 ADMISSION DATE: 08/01/19 REHABILITATION HISTORY AND PHYSICAL EXAMINATION POST ADMISSION PHYSICIAN EXAMINATION ADMITTING DIAGNOSIS: Debility secondary to urinary tract infection caused by Escherichia coli. HISTORY OF PRESENT ILLNESS: The patient is a 74-year-old female patient, who is followed by Dr. Beckwith. She has got a history of hypertension, osteoporosis, neuropathy, chronic back pain, presented to the ED on 07/29/2019 with multiple falls, stated that she had had a fall a few weeks prior to her admit, sustained a right shoulder injury. Had an MRI of her right shoulder, but did not know any results from this. She continues to have weakness and decreased mobility of her right upper extremity after sustaining a fall. Reported that she had additional fall on 07/27/2019, states that she feels weak and dizzy at times, did report that she had some irritation when urinating and was admitted to the acute hospital , found to have a UTI caused by E. coli. She has been seen and followed by PT during her acute hospital admit. She is currently on telemetry, IV antibiotics, supplemental O2. She is having acute pain. She is on electrolyte protocol, deconditioning, weakness, debility, impaired mobility and gait disturbance and high fall risk and self-care deficits. These are all barriers to her discharge home safely at this time. She lives at home with her , was independent with her ADLs and mobility prior to this. Currently, set up for mod assist for ADLs, mod assist for mobility. She and her family are planning for her to return home hopefully at her prior level of function or better. COMORBIDITIES: Include UTI, hypertension, [id number] diastolic congestive heart failure, valvular heart disease, moderate aortic stenosis, moderate aortic insufficiency, osteoarthritis, osteoporosis, restless legs, depression, neuropathy, protein-calorie malnutrition, chronic diarrhea, sinus tachycardia, frequent falls and chronic back pain. PAST MEDICAL HISTORY: Significant for neuropathy, weakness, vertigo, hypertension, CHF, tachycardia, arthritis, chronic lumbago, osteoporosis, restless legs, menopause, depression. PAST SURGICAL HISTORY: Includes appendectomy, tonsillectomy, adenoidectomy, bilateral foot surgery. ALLERGIES: PENICILLIN. CURRENT MEDICATIONS: Include digoxin 0.125 mg daily, Floranex 460 mg daily. She is on prednisone 10 mg daily. She is on potassium chloride 20 mEq daily, losartan 25 mg daily, Levaquin 250 mg daily, citalopram 20 mg daily, Protonix 40 mg daily, furosemide 40 mg daily, Requip 0.5 mg b.i.d., melatonin 6 mg bedtime, Os-Larry with D 500 mg b.i.d., Lyrica 50 mg t.i.d. and Findlay 10/325 one tab every 4 hours p.r.n. HABITS: No alcohol or tobacco use. FAMILY HISTORY: Noncontributory. HISTORY AND PHYSICAL [id number] MO,SAMY SOCIAL HISTORY: The patient hopes to return back home and get back to her prior level of functioning. REVIEW OF SYSTEMS: GENERAL: Does complain of some weakness and fatigue. HEENT: Denies cold, cough, or congestion. CARDIOVASCULAR: Denies any chest pain. LUNGS: Denies shortness of breath. PHYSICAL EXAMINATION: VITAL SIGNS: Stable. She is afebrile. GENERAL: A thin female in no acute distress, alert upon exam. HEENT: Normocephalic and atraumatic. Mucosa moist. NECK: Supple. No lymphadenopathy. LUNGS: Clear at this time. No wheezing, rhonchi or rales. HEART: Regular rate and rhythm. She does have a holosystolic murmur. ABDOMEN: Soft, benign, and nondistended. Positive bowel sounds times 4. EXTREMITIES: No clubbing, cyanosis or edema. NEUROLOGIC: Does have noted weakness diffusely with her upper and lower extremities being may be 3/5. LABORATORY DATA: Her white count is 11,000, H&H 13 and 40, and platelet count is 250. Her sodium is 143, potassium 3.6, BUN and creatinine of 14 and 0.9, blood sugar is noted to be 85. ASSESSMENT: This 74-year-old female patient admitted to rehab with a working diagnosis of debility, probably secondary to urinary tract infection and recent falls. The patient has potential to make improvement. We instituted the following multidisciplinary therapies include, but not limited to physical, occupational, respiratory, speech, nutritional services, prosthetics and orthotics. Given her complex medical condition and risk for more complications, rehabilitation services cannot be provided at a low level of care such as [facility] facility. PLAN: 1. Admit to [facility] for intensive inpatient therapy to include the following disciplines: A. Physical therapy to improve gait, all transfer skills and bed mobility to a modified independent level. B. Occupational therapy to a modified independent level. C. Case management to assist with discharge planning and placement options. D. Nutrition to assist with nutritional needs. E. Rehabilitation nursing to assist in monitoring the patient's underlying medical condition and to assist with any type of bowel or bladder management. 2. The patient's current medication and medical care will be continued. 3. The patient will be placed on standard fall precautions. 4. The patient estimated length of stay is approximately 7-10 days. 5. We will discuss this patient during care team staff meeting this week. TRANSINT:[id number] Voice Confirmation ID: [id number] DOCUMENT ID: [id number] SHIRAZ notes whether there has been none or any medical/functional change since admission: - No change since prescreen. HISTORY AND PHYSICAL [id number] SAMY HASSAN attests patient continues to be appropriate for IRF: - Continues to be appropriate. DARCY ANNA MD at 0924 CC: [id number] DICTATION DATE: 08/02/19 0845 [employer]: 08/02/19 0907 ADM IN [facility] [address] [id number]
--- NOTE | 2019-08-04 10:43 | NUR ---
SHOWER GIVEN PER THERAPY.
--- NOTE | 2019-08-04 12:42 | NUR ---
SITTINIG IN CHAIR. PAIN MED AND IMMODIUM GIVEN. CL IN REACH.
--- NOTE | 2019-08-04 19:15 | NUR ---
BEDSIDE REPORT COMPLETE. PT SITTING UP IN CHAIR WATCHING TV. ALERT AND ORIENTED X4. DENIES ANY NEEDS OR PAIN. NO SIGNS OF ACUTE DISTRESS NOTED. VS STABLE. SHIFT ASSESSMENT COMPLETE. CL IN REACH. FALL PRECAUTIONS IN PLACE. WILL CONTINUE TO MONITOR
[2019-08-04 21:06] VITALS: BP 164/50
--- NOTE | 2019-08-04 23:16 | NUR ---
QUIET HOURS. PT LYING IN BED SUPINE EYES CLOSED RESTING QUIETLY. RR EVEN AND UNLABORED. CL IN REACH.
--- NOTE | 2019-08-05 05:32 | NUR ---
PT LYING IN BED ON LEFT SIDE EYES CLOSED RESTING QUIETLY. RR EVEN AND UNLABORED. CONTINUES ON 1.5L VIA NC. CL IN REACH
[2019-08-05 07:46] VITALS: BP 152/41
--- NOTE | 2019-08-05 07:57 | NUR ---
ALERT AND ORIENTED. SITTING ON SIDE OF BED EATING BREAKFAST. CL IN REACH.
--- NOTE | 2019-08-05 10:50 | NUR ---
PARTICIPATING IN THERAPY. NO DISTRESS NOTED.
--- NOTE | 2019-08-05 13:16 | NUR ---
Nutrition Follow-up: Diet: Regular PO intake: ~93% average x last 10 meals; reports wonderful appetite. Requested Mrs. Dill rather than salt on trays d/t swelling in her legs. Last BM= 08/05/19 x 3. Wt: 125# (08/02/19) Significant meds: prednisone, levaquin, lasix. Labs and skin assessment reviewed. Continue current nutrition regimen. Will enter diet preferences in diet order. RD Following.
--- NOTE | 2019-08-05 16:27 | NUR ---
NO CHANGE IN ASSESSMENT. SITTING IN CHAIR. NO C/O PAIN AT THIS TIME. CL IN REACH.
--- NOTE | 2019-08-05 19:28 | NUR ---
GREETED PATIENT AND INTRODUCED MYSELF HER NURSE. PATIENT IS LAYING IN BED WATCHING TV AT THIS TIME. RESPIRATIONS EVEN. NO S/S OF DISTRESS. CALL LIGHT IN REACH.
[2019-08-05 21:29] VITALS: BP 183/45
--- NOTE | 2019-08-06 00:32 | NUR ---
PT. RESTING QUIETLY WITH EYES CLOSED. RESPIRATIONS EVEN. NO S/S OF DISTRESS. O2 AT 1.5L IN USE VIA NC. SR UP X 2. BED IN LOWEST POSITION. CALL LIGHT IN REACH.
[2019-08-06 06:44] LABS: BASOPHILS 0.3 % (0-2); EOSINOPHILS 1.1 % (0-7); HEMATOCRIT 39.8 % (36.0-48.0); HEMOGLOBIN 12.4 g/dL (12-16); IMMATURE GRANULOCYTES 0.3 % (0-5); LYMPHOCYTES 26.1 % (15-50); MCH 31.4 pg (26.0-34.0); MCHC 31.2 g/dL (31.0-37.0); MCV 100.8 fL (80.0-100.0); MEAN PLATELET VOLUME 10.4 fL (7.4-10.4); MONOCYTES 10.3 % (2-11); NEUTROPHILS 61.9 % (40-80); PLATELET COUNT 273 10x3/uL (130-400); RBC 3.95 10x6/uL (4.00-5.40)
[2019-08-06 06:49] LABS: ANION GAP 9.6 mmol/L (8-16); CALCIUM 8.9 mg/dL (8.5-10.1); CARBON DIOXIDE 30.6 mmol/L (21.0-32.0); CREATININE - SERUM 0.9 mg/dL (0.6-1.3); POTASSIUM - SERUM 4.2 mmol/L (3.5-5.1)
--- NOTE | 2019-08-06 07:54 | NUR ---
ALERT AND ORIENTED. NO C/O PAIN AT THIS TIME. CL IN REACH.
[2019-08-06 08:18] VITALS: BP 183/63
--- NOTE | 2019-08-06 16:28 | NUR ---
CARE TEAM MEETING: PATIENT ATTNEDED MEETING AND HER QUESTIONS AND CONCERNS WERE ADDRESSED.TENATIVE DISCHARGE DATE IS 08/12/19, WHERE SHE WILL RETURN HOME WITH FAMILY. WILL CONTINUE TO FOLLOW WITH PATIENT
--- NOTE | 2019-08-06 19:14 | NUR ---
GREETED PATIENT AND INTRODUCED MYSELF HER NURSE. PATIENT IS SITTING IN RECLINER WATCHING TV AT THIS TIME. RESPIRATIONS EVEN. NO S/S OF DISTRESS. STATES THAT PAIN IS 2/10 RIGHT SHOULDER. CALL LIGHT IN REACH.
[2019-08-06 19:54] VITALS: BP 146/56
--- NOTE | 2019-08-06 23:02 | NUR ---
PT. AWAKE AND SITTING AT [facility] PUTTING ON MAKEUP. DENIES ANY NEEDS AT THIS TIME.
[2019-08-07 08:00] VITALS: BP 157/43
--- NOTE | 2019-08-07 08:00 | NUR ---
SHIFT ASSMT COMPLETED.
--- NOTE | 2019-08-07 12:00 | NUR ---
SITTING UP AT BEDSIDE EATING LUNCH.
--- NOTE | 2019-08-07 16:00 | NUR ---
REMAINS UP IN CHAIR.
[2019-08-07 19:15] VITALS: BP 143/54
--- NOTE | 2019-08-07 19:20 | NUR ---
AWAKE AND ALERT. SITTING IN CHAIR IN ROOM. RESPIRATIONS UNLABORED. STATES SHE HAS HAD 7 LOOSE STOOLS TODAY BUT FEELS LIKE THE MEDICATION IS MAKING HER STOOLS MORE SOLID. REQUEST PAIN PILL AND IMMODIUM WITH HS MEDICATIONS. I ASSURED HER I WOULD BRING THOSE MEDICATIONS TO HER AT HS. NO ACUTE DISTRESS NOTED. CALL LIGHT IN REACH.
--- NOTE | 2019-08-08 03:26 | NUR ---
RESTING IN BED WITH RESPIRATIONS UNLABORED. NO DISTRESS NOTED.
--- NOTE | 2019-08-08 05:12 | NUR ---
QUIET HOURS. NO ACUTE CHANGES IN CONDITION THIS SHIFT. RESTING IN BED WITH NO DISTRESS NOTED.
[2019-08-08 06:56] LABS: ANION GAP 6.4 mmol/L (8-16); CALCIUM 8.8 mg/dL (8.5-10.1); CARBON DIOXIDE 32.7 mmol/L (21.0-32.0); CREATININE - SERUM 1.2 mg/dL (0.6-1.3); POTASSIUM - SERUM 4.1 mmol/L (3.5-5.1)
[2019-08-08 07:33] LABS: HEMATOCRIT 38.6 % (36.0-48.0); HEMOGLOBIN 12.6 g/dL (12-16); LYMPHOCYTES 32.5 % (15-50); MCH 32.2 pg (26.0-34.0); MCHC 32.6 g/dL (31.0-37.0); MCV 98.7 fL (80.0-100.0); MEAN PLATELET VOLUME 9.9 fL (7.4-10.4); NEUTROPHILS 56.9 % (40-80); PLATELET COUNT 212 10x3/uL (130-400); RBC 3.91 10x6/uL (4.00-5.40); RDW 15.1 % (11.5-14.5); WBC 10.9 10x3/uL (4.8-10.8)
--- NOTE | 2019-08-08 08:15 | NUR ---
PT RESTING IN BED WITH EYES OPEN CALL LIGHT IN REACH WILL MONITER
--- NOTE | 2019-08-08 18:24 | NUR ---
PT UP IN CHAIR EATING SUPER TOLERATING WELL WILL MONITER
[2019-08-08 18:30] VITALS: BP 142/52
--- NOTE | 2019-08-08 20:09 | NUR ---
GREETED PATIENT AND INTRODUCED MYSELF HER NURSE. PATIENT IS SITTING ON SIDE OF BED AT THIS TIME. RESPIRATIONS EVEN. NO S/S OF DISTRESS. STATES PAIN IS 2/10 IN RIGHT SHOULDER. CALL LIGHT IN REACH.
--- NOTE | 2019-08-09 08:15 | NUR ---
PT RESTING IN BED WITH EYES OPEN CALL LIGHT IN REACH WILL MONITER
[2019-08-09 08:35] VITALS: BP 142/40
--- NOTE | 2019-08-09 13:24 | NUR ---
PATIENT WALKED TO BATHROOM WITH STAND BY ASST USING WHEELED WALKER.
--- NOTE | 2019-08-09 13:26 | NUR ---
PATIENT STATES SHE HAD AN APPT SET UP WITH DR YI BEFORE SHE WAS ADMITTED TO HOSPITAL. STATED SHE HAS NOT HAD ANY HEART PROBLEMS SINCE SHE HAS BEEN IN HOSPITAL. NOTE LEFT WITH CASEMANAGER TO MAKE ANOTHER APPT WITH DR YI AFTER DISCHARGE FROM REHAB
--- NOTE | 2019-08-09 17:33 | NUR ---
PATIENT SITTING UP AT BEDSIDE TO EAT SUPPER.
[2019-08-09 19:10] VITALS: BP 144/57
--- NOTE | 2019-08-09 19:10 | NUR ---
BEDSIDE REPORT COMPLETE. PT SITTING UP IN BED READING BOOK. ALERT AND ORIENTED X4. DENIES ANY NEEDS OR PAIN. RR EVEN AND UNLABORED. CONTINUES ON 2L VIA NC @ HS. VS STABLE. SHIFT ASSESSMENT COMPLETE. CL IN REACH. BED ALARM ON . WILL CONTINUE TO MONITOR
--- NOTE | 2019-08-10 | NUR ---
QUIET HOURS. PT LYING IN BED EYES CLOSED RESTING QUIETLY. RR EVEN AND UNLABORED. CL IN REACH
--- NOTE | 2019-08-10 01:30 | NUR ---
ASSISTED TO RESTROOM AND BACK TO BED WITH SBA. NORCO 10/325MG ADMININSTERED PER PT REQUEST. NO SIGNS OF ACUTE DISTRESS NOTED. CL IN REACH, BED ALARM ON
--- NOTE | 2019-08-10 05:51 | NUR ---
PT LYING IN BED EYES CLOSED RESTING QUIETLY. RR EVEN AND UNLABORED. CL IN REACH
--- NOTE | 2019-08-10 07:34 | NUR ---
ALERT AND ORIENTED. RESP EVEN AND UNLABORED. NO C/O PAIN. CL IN REACH.
[2019-08-10 08:45] VITALS: BP 135/91
[2019-08-10 08:47] VITALS: BP 135/91
--- NOTE | 2019-08-10 11:20 | NUR ---
SITTING IN CHAIR. NO DISTRESS NOTED. AMBULATED IN BAR WITH THERAPY THIS AM. CL IN REACH.
--- NOTE | 2019-08-10 12:57 | NUR ---
SHOWER OFFERED. PATIENT STATES THAT SHE HAS SHOWERS ON AND DOES HER OWN BATHING THE REST OF THE TIME. SHE SAID SHE HAS ALREADY BATHED THIS AM.
--- NOTE | 2019-08-10 16:06 | NUR ---
NO CHANGE IN ASSESSMENT. RESTING W C/O PAIN. VISITOR AT BS. CL IN REACH.
[2019-08-10 19:10] VITALS: BP 166/57
--- NOTE | 2019-08-10 19:10 | NUR ---
BEDSIDE REPORT COMPLETE. PT SITTING UP ON SIDE OF BED TALKING ON PHONE. ALERT AND ORIENTED X4. DENIES ANY NEEDS OR PAIN. NO SIGNS OF ACUTE DISTRESS NOTED. VS STABLE. SHIFT ASSESSMENT COMPLETE. CL IN REACH. BED ALARM ON. WILL CONTINUE TO MONITOR
--- NOTE | 2019-08-10 23:06 | NUR ---
QUIET HOURS. PT LYING IN BED ON LEFT SIDE EYES CLOSED RESTING QUIETLY. RR EVEN AND UNLABORED. CONTINUES ON 2L VIA NC @ HS. CL IN REACH
--- NOTE | 2019-08-11 02:27 | NUR ---
PT LYING IN BED ON LEFT SIDE EYES CLOSED RESTING COMFORTABLY. RR EVEN AND UNLABORED. CL IN REACH
--- NOTE | 2019-08-11 04:19 | NUR ---
ASSISTED PT TO RESTROOM AND BACK TO BED WITH SBA. PT REQUESTED PAIN MEDICATION AND IMMODIUM. ADMININSTERED NORCO 10/325MG AND 2MG IMMODIUM PER ORDERS. CL IN REACH. BED ALARM ON
[2019-08-11 06:25] LABS: BASOPHILS 0.3 % (0-2); EOSINOPHILS 1.6 % (0-7); HEMATOCRIT 39.5 % (36.0-48.0); HEMOGLOBIN 12.1 g/dL (12-16); IMMATURE GRANULOCYTES 0.4 % (0-5); LYMPHOCYTES 24.6 % (15-50); MCH 31.5 pg (26.0-34.0); MCHC 30.6 g/dL (31.0-37.0); MCV 102.9 fL (80.0-100.0); MEAN PLATELET VOLUME 10.6 fL (7.4-10.4); MONOCYTES 10.6 % (2-11); NEUTROPHILS 62.5 % (40-80); PLATELET COUNT 240 10x3/uL (130-400); RBC 3.84 10x6/uL (4.00-5.40); RDW 15.5 % (11.5-14.5); WBC 12.7 10x3/uL (4.8-10.8)
[2019-08-11 06:48] LABS: ANION GAP 9.4 mmol/L (8-16); CALCIUM 8.6 mg/dL (8.5-10.1); CREATININE - SERUM 0.9 mg/dL (0.6-1.3); POTASSIUM - SERUM 4.4 mmol/L (3.5-5.1)
--- NOTE | 2019-08-11 07:23 | NUR ---
PATIENT IS ALERT/ORIENT. RESTING IN BED. CALL LIGHT WITHIN REACH. VOICES NO NEEDS AT THIS TIME. WILL CONTINUE WITH PLAN OF CARE
[2019-08-11 07:31] VITALS: BP 147/36
--- NOTE | 2019-08-11 10:49 | NUR ---
PATIENT WALKING IN HALLWAY WITH PHYSICAL THERAPIST. USING WHEELED WALKER. STEADY GAIT WITH WALKER.
--- NOTE | 2019-08-11 15:01 | NUR ---
Nutrition Follow-up: Diet: Regular PO intake: ~69% average x last 12 meals average. Reports good appetite. She had eaten all food on meal tray. Last BM: 08/11/19. Wt: 125# (08/02/19), no new wt Significant meds: prednisone, levoquin, lasix. Labs noted: Glu 120. Continue current nutrition regimen. Will update diet with food preferences given by patient. RD Following.
--- NOTE | 2019-08-11 18:50 | NUR ---
BEDSIDE REPORT COMPLETE. PT SITTING UP ON SIDE OF BED READING BOOK. ALERT AND ORIENTED X4. DENIES ANY NEEDS OR PAIN. NO SIGNS OF ACUTE DISTRESS NOTED. VS STABLE. SHIFT ASSESSMENT COMPLETE. CL IN REACH. FALL PRECAUTIONS IN PLACE. WILL CONTINUE TO MONITOR
[2019-08-11 19:23] VITALS: BP 134/56
--- NOTE | 2019-08-12 02:20 | NUR ---
QUIET HOURS. PT LYING IN BED ON LEFT SIDE EYES CLOSED RESTING QUIETLY. RR EVEN AND UNLABORED. CL IN REACH
--- NOTE | 2019-08-12 06:15 | NUR ---
PT SITTING UP ON SIDE OF BED READING. NO SIGNS OF ACUTE DISTRESS NOTED. CL IN REACH
[2019-08-12 08:18] VITALS: BP 152/50
--- NOTE | 2019-08-12 09:13 | NUR ---
PATIENT DISCHARGING HOME TODAY WITH FAMILY. [facility] WILL PROVIDE THERAPY AT HOME(HAND OUT GIVEN WITH COMPARE DATA REVIEWED WITH PATIENT AND PATIENT VOICED UNDERSTANDING) NO NEW DME NEEDED AT THIS TIME. PATIENT CHOICE FORM AND [facility] FORMS SIGNED, COPY GIVEN TO PATIENT AND FILED IN CHART. DISCHARGE INSTRUCTIONS FAXED TO PCP, HOME HEALTH AND REVIEWED WITH PATIENT. DR. BROWN 08/19/19 @ 3:50. DR. SABA 08/20/19 @ 9:00, DR. YI/CHUYITA 09/01/19 @ 11:30.
[2019-08-12] MEDS ORDERED: HYDROCODON-ACE1 EA10 PO (11:26)
== END 2019-08-12 13:00 | disposition home health service (06) | DRG 947 ==
LOC: D.REHAB 13:06
PROVIDERS: ADMIT Emergency Medicine; ATTEND Emergency Medicine
DX: R53.81 Other malaise (principal); I50.33 Acute on chronic diastolic (congestive) heart failure; N39.0 Urinary tract infection, site not specified; E46 Unspecified protein-calorie malnutrition; E87.1 Hypo-osmolality and hyponatremia; B96.20 Unspecified Escherichia coli [E. coli] as the cause of diseases classified elsewhere; I11.0 Hypertensive heart disease with heart failure; I35.0 Nonrheumatic aortic (valve) stenosis; M19.90 Unspecified osteoarthritis, unspecified site; M81.0 Age-related osteoporosis without current pathological fracture; G25.81 Restless legs syndrome; F32.9 Major depressive disorder, single episode, unspecified; G62.9 Polyneuropathy, unspecified; K52.9 Noninfective gastroenteritis and colitis, unspecified; R00.0 Tachycardia, unspecified; G89.29 Other chronic pain; M75.101 Unspecified rotator cuff tear or rupture of right shoulder, not specified as traumatic; E86.0 Dehydration; I50.9 Heart failure, unspecified